=== PATIENT | female | born 1955 | race Caucasian/White ===

== ENCOUNTER → 2020-07-08 15:02 | Outpatient (BNVA) | payer OTHER, SELFPAY | PROVIDERS: Family Provider Nurse Practitioner; PCP Nurse Practitioner; Visit Provider Nurse Practitioner Family | DX: Z20.828 Contact with and (suspected) exposure to other viral communicable diseases (principal) | CPT/HCPCS: 87635 ==

== ENCOUNTER 2020-10-02 12:12 | Outpatient (CLI) | payer OTHER, SELFPAY ==
--- NOTE | 2020-10-02 12:17 | MM_ITS ---
WS: [id number] SCREENING DIGITAL MAMMOGRAM WITH CAD HISTORY: SCREENING COMPARISON: 09/24/2019 and 09/03/2018 Bilateral CC and MLO views submitted. Computer aided detection analyzed. Breast composition: There are scattered areas of fibroglandular density. No suspicious masses, microc alcifications or architectural distortion. MM/[place] [id number] IMPRESSION: BI-RADS: 1-Negative FOLLOW UP: 1 Year Follow-up
== END 2020-10-02 12:13 | disposition home or self-care (01) ==
PROVIDERS: PCP Family Medicine; Visit Provider Obstetrics & Gynecology Gynecologic Oncology
DX: Z12.31 Encounter for screening mammogram for malignant neoplasm of breast (principal)
CPT/HCPCS: 77067

== ENCOUNTER 2020-11-13 12:51 | Outpatient (CLI) | payer OTHER, SELFPAY ==
--- NOTE | 2020-11-13 12:45 | USCV_ITS ---
Ayesha Pizano Age: 65 Gender: F : 1955 Exam Date: 11/13/2020 13:30 Ordering Phys: Mandeep Beck MD (Andy) ([email or web address]) Technologist: Mary Treadwell Exam Location: [facility] [place] Indication: HISTORY: Patient has history of varicose veins. PROCEDURES: Bilateral duplex Venous Insufficiency study of the Deep and Superficial systems was carried out according to normal protocol with the patient in supine positon for deep system and dependent position for the superficial system. FINDINGS: There is no evidence of bilateral deep vein thrombosis. No evidence of superficial thrombosis in the bilateral saphenous system. No evidence of reflux was noted in the bilateral deep venous system. Venous reflux is demonstrated in the RIGHT greater saphenous vein with a spectral Doppler display of greater than 500 milliseconds at the distal level. Venous reflux is demonstrated in the RIGHT small saphenous vein with a spectral Doppler display of greater than 500 mlsec at the level of the Mid calf. There appears to be a right plate colorer at the ankle level believed to originate from SSV. Venous reflux is demonstrated in the LEFT greater saphenous vein with a spectral Doppler display of greater than 500 milliseconds at all levels evaluated. Vessel is deep within thigh ? abiltiy to ablate. There is a large accessory vein extending from the distal GSV very large in diameter and tortuous extending into the lower extremity. There appears to be a left plate colorer at the level of the left ankle believed to originate form the LGSV. CONCLUSIONS 1. No evidence of DVT in the above-mentioned identifiable veins. 2. Significant venous reflux of greater than 500 ms were noted at the distal greater saphenous vein segment and the mid segment of the small saphenous veins on the right side. The segments where greater than 1 cm deep from the surface and measuring 0.41 and 0.38 cm respectively in diameter. The small saphenous vein segment was found to have a plate colorer at the level of the ankle 3. Significant venous reflux of greater than 500 ms were noted throughout the greater saphenous vein segments on the left side including the saphenofemoral junction. The venous segments were measuring 0.36 to 1.03 cm in diameter. They appeared to be deep anywhere from 2.1 to 3.3 cm from the skin surface. 4. A large tortuous accessory vein appeared to be draining into the distal greater saphenous vein segment, on the left side. At the level of the ankle, there appeared to be a plate colorer, connecting to the deep vein 5. No significant venous reflux in the deep veins Dr Halley Garcia MD [facility] (Electronically Signed) Final Date: 13 November 2020 15:27 S
== END 2020-11-13 12:52 | disposition home or self-care (01) ==
LOC: US 12:54
PROVIDERS: PCP Family Medicine; Visit Provider Thoracic Surgery (Cardiothoracic Vascular Surgery)
DX: I83.91 Asymptomatic varicose veins of right lower extremity (principal); I83.92 Asymptomatic varicose veins of left lower extremity
CPT/HCPCS: 93970

== ENCOUNTER → 2021-06-02 10:00 | Outpatient (BNVA) | payer OTHER, SELFPAY | PROVIDERS: Family Provider Nurse Practitioner; PCP Family Medicine; Visit Provider Family Medicine | DX: Z20.822 Contact with and (suspected) exposure to COVID-19 (principal) | CPT/HCPCS: 87426 ==

== ENCOUNTER 2022-08-04 07:41 | Outpatient (CLI) | payer OTHER, SELFPAY ==
--- NOTE | 2022-08-04 07:46 | MM_ITS ---
WS: [id number] SCREENING DIGITAL TOMOSYNTHESIS MAMMOGRAM WITH CAD HISTORY: SCREEN COMPARISON: 10/02/2020 and 09/24/2019 Bilateral CC and MLO with tomosynthesis views submitted. Synthetic mammography reviewed. Computer aid ed detection analyzed. Breast composition: There are scattered areas of fibroglandular density. No suspicious masses, microc alcifications or architectural distortion. MM/[place] [id number] IMPRESSION: BI-RADS: 1-Negative FOLLOW UP: 1 Year Follow-up
== END 2022-08-04 07:42 | disposition home or self-care (01) ==
LOC: RAD 07:44
PROVIDERS: PCP Family Medicine; Visit Provider Family Medicine
DX: Z12.31 Encounter for screening mammogram for malignant neoplasm of breast (principal)
CPT/HCPCS: 77063; 77067

== ENCOUNTER 2023-11-09 16:08 | Outpatient (CLI) | payer OTHER, SELFPAY ==
--- NOTE | 2023-11-09 16:12 | MM_ITS ---
WS: [id number] BILATERAL SCREENING DIGITAL TOMOSYNTHESIS MAMMOGRAM WITH CAD HISTORY: SCREENING COMPARISON: 08/04/2022 and 10/02/2020 Bilateral CC and MLO views with tomosynthesis and synthetic mammography submitted. Computer aided det ection analyzed. Breast composition: There are scattered areas of fibroglandular density. No suspicious masses, microc alcifications or architectural distortion. There are few scattered benign calcifications within each breast. IMPRESSION: MM/[place] [id number] BI-RADS: 2-Benign FOLLOW UP: 1 Year Follow-up
== END 2023-11-09 16:09 | disposition home or self-care (01) ==
PROVIDERS: PCP Family Medicine; Visit Provider Family Medicine
DX: Z12.31 Encounter for screening mammogram for malignant neoplasm of breast (principal); R92.323 Mammographic fibroglandular density, bilateral breasts; R92.1 Mammographic calcification found on diagnostic imaging of breast
CPT/HCPCS: 77063; 77067

== ENCOUNTER 2024-12-17 11:07 | Outpatient (CLI) | payer MEDICARE, SELFPAY ==
--- NOTE | 2024-12-17 11:14 | MM_ITS ---
WS: [id number] SCREENING DIGITAL BREAST TOMOSYNTHESIS MAMMOGRAM WITH CAD HISTORY: SCREEN COMPARISON: 10/02/2020, 08/04/2022, 11/09/2023 Bilateral CC and MLO with tomosynthesis and synthetic mammography submitted. Computer aided detection analyzed. Breast composition: There are scattered areas of fibroglandular density. New lobulated mass measuring 6 x 5 x 3 mm in the anterior medial LEFT breast seen best on the CC projection. This may be a small lymph node or cyst. The remaining breasts are stable. No architectural distortion. Benign calcifications. MM/MM [facility] tomosynthesis [id number] IMPRESSION: BI-RADS: 0 - Incomplete: Need additional imaging evaluation. FOLLOW UP: Need Additional Imaging LEFT breast: Spot compression views (CC and MLO). True ML. Ultrasound to follow if abnormality persists.
== END 2024-12-17 11:08 | disposition home or self-care (01) ==
PROVIDERS: PCP Family Medicine; Visit Provider Family Medicine
DX: Z12.31 Encounter for screening mammogram for malignant neoplasm of breast (principal); R92.323 Mammographic fibroglandular density, bilateral breasts; N63.20 Unspecified lump in the left breast, unspecified quadrant; R92.1 Mammographic calcification found on diagnostic imaging of breast
CPT/HCPCS: 77063; 77067

== ENCOUNTER 2025-01-06 07:15 | Outpatient (CLI) | payer MEDICARE, SELFPAY ==
--- NOTE | 2025-01-06 07:22 | MM_ITS ---
WS: [id number] ADDITIONAL VIEWS LEFT MAMMOGRAM WITH DIGITAL BREAST TOMOSYNTHESIS. LEFT breast ultrasound, limited HISTORY: ABNORMAL MAMMO COMPARISON: 12/17/2024, 11/09/2023, 08/04/2022, 10/02/2020 Spot compression views LEFT breast in CC, MLO projections and true ML submitted with digital breast tomosynthesis and SM. Breast composition: There are scattered areas of fibroglandular density. Rounded mass persists in the medial LEFT breast near 7-8 o'clock. Mass in the anterior breast of slightly increased density measuring 4 x 3 x 5 mm. This could potentially be a small lymph node. No distortion. No additional abnormality. LEFT breast ultrasound, limited. There is slightly hypoechoic mass measuring 6 x 4 x 2 mm in the LEFT breast at 8:00, 2 cm from the nipple. This does correspond to an size and location to the mammographic abnormality. This is too small to completely characterize but is probably a small cyst. There is no shadowing or increased vascularity. MM/MM diag LT tomosynthesis [id number] IMPRESSION: BI-RADS: 3 - Probably Benign. FOLLOW UP: 6 Month Follow-up Recommend follow-up diagnostic LEFT mammogram and ultrasound in 6 months. Follo w-up recommended as this is a new finding.
== END 2025-01-06 07:16 | disposition home or self-care (01) ==
PROVIDERS: PCP Family Medicine; Visit Provider Family Medicine
DX: R92.8 Other abnormal and inconclusive findings on diagnostic imaging of breast (principal); R92.323 Mammographic fibroglandular density, bilateral breasts; N63.24 Unspecified lump in the left breast, lower inner quadrant
CPT/HCPCS: 76642; 77061; G0279

== ENCOUNTER → 2025-07-21 11:58 | Outpatient (BNVA) | payer MEDICARE, SELFPAY | PROVIDERS: PCP Family Medicine; Visit Provider Nurse Practitioner | DX: R39.9 Unspecified symptoms and signs involving the genitourinary system (principal); N30.00 Acute cystitis without hematuria | CPT/HCPCS: 81000; 87086 ==

== ENCOUNTER 2025-08-04 10:04 | Outpatient (CLI) | payer MEDICARE, SELFPAY ==
--- NOTE | 2025-08-04 10:10 | MM_ITS ---
WS: [id number] DIAGNOSTIC LEFT DIGITAL BREAST TOMOSYNTHESIS WITH CAD HISTORY: ABNORMAL MAMMO-6 MONTH FOLLOW UP COMPARISON: 01/06/2025, 12/17/2024, 11/09/2023 and 08/04/2022 Left craniocaudal, mediolateral oblique and medial lateral images are submitted with tomosynthesis and SM. Computer aided detection performed. Breast composition: There are scattered areas of fibroglandular density. Reidentified is the 4 x 3 x 3 mm nodule in the anterior LEFT breast near 7-8 o'clock. No interval change. This was very difficult to visualize on ultrasound. Due to its stability by mammography no additional ultrasound is necessary at this time. No areas of distortion. No new suspicious calcifications. MM/MM diag tomosynthesis [id number] IMPRESSION: BI-RADS: 3 - Probably Benign. FOLLOW UP: 6 Month Follow-up Patient to return for annual mammogram in December 2025. Spot compression views of the LEFT breast nodule will also be performed at that time.
== END 2025-08-04 10:05 | disposition home or self-care (01) ==
LOC: RAD 10:06
PROVIDERS: PCP Nurse Practitioner Family; Visit Provider Nurse Practitioner Family
DX: R92.8 Other abnormal and inconclusive findings on diagnostic imaging of breast (principal); R92.323 Mammographic fibroglandular density, bilateral breasts; N63.24 Unspecified lump in the left breast, lower inner quadrant
CPT/HCPCS: 77061; G0279

== ENCOUNTER → 2025-10-02 14:43 | Outpatient (BNVA) | payer MEDICARE, SELFPAY | PROVIDERS: PCP Nurse Practitioner Family | DX: R39.9 Unspecified symptoms and signs involving the genitourinary system (principal); R30.0 Dysuria | CPT/HCPCS: 81000; 87086 ==